=== PATIENT | male | born 1960 | race Caucasian/White ===

== ENCOUNTER → 2017-08-15 | Outpatient (CLI) | payer BC ==
[~2017-08-15] MED LIST: ATEN100T PO; ATEN50TA PO; ATOR80TA76 PO; CETI10TA17 PO; DABI150C5 PO; DILT240C90 PO; FLEC100T PO; FLUT16SP22 NS; GUAI120013 PO; LORA10TA7 PO; MULT-974 PO
== END ==
LOC: CARD 09:30
PROVIDERS: ATTEND Physician Assistant
DX: I10 Essential (primary) hypertension (principal); R00.2 Palpitations; G47.33 Obstructive sleep apnea (adult) (pediatric); I48.0 Paroxysmal atrial fibrillation
CPT/HCPCS: 93306

== ENCOUNTER → 2018-02-17 | Outpatient (CLI) | payer BC ==
[~2018-02-17] VITALS: Ht 190.5 cm; Wt 103.0 kg
[~2018-02-17] MED LIST changes: +CATHETER FLUSH 10 ML SYR IV PRN
[2018-02-17 10:00] VITALS: BP 172/74
--- NOTE | 2018-02-17 12:30 | STRESS TEST ---
DATE OF SERVICE: 02/17/2018 EXERCISE MYOVIEW STRESS TEST REPORT REFERRING PHYSICIAN: Dr. Gannon. Baseline heart rate is 61, baseline blood pressure 138/91, baseline EKG is sinus rhythm with no ischemic changes. In summary, the patient was injected with 10.7 mCi of technetium-99 Myoview and the resting images were obtained. Then, the patient started exercising with a baseline heart rate, blood pressure and EKG mentioned above. The patient was able to exercise for 10 minutes 45 seconds on standard Shawn protocol. With peak exercise level, EKG was showing minimal nondiagnostic changes. During recovery, heart rate and blood pressure returned to baseline. EKG returned to baseline, peak blood pressure was 188/83. The resting and stress images were reviewed and compared in the short axis, horizontal long axis, and vertical long axis views. Review of the images showed extracardiac attenuation affecting the quality of the images. There is mild decreased uptake at the base of the anterior wall and base of the inferior wall with no significant reversibility. SSS is 3, SDS 3, TID value 1.06. On the gated images, the left ventricle appeared to be in normal size with normal contractility. Calculated ejection fraction 54%. CONCLUSION: 1. Good exercise tolerance, a total of 10 minutes 45 seconds on standard Shawn protocol, total of 12.1 METS achieving 96% of maximum expected heart rate. 2. Mild hypertensive response to exercise, returned to baseline during recovery. 3. Minimal nondiagnostic EKG changes with exercise, returned to baseline during recovery. 4. No significant ischemia or infarction on SPECT images. 5. Normal left ventricular size with normal contractility. Calculated ejection fraction of 54%. Job ID: [id number] DocumentID: [id number] Dictated Date: 02/17/2018 12:20:56 [facility] Date: 02/17/2018 12:29:57 Dictated By: RADHA MORTENSEN MD
== END ==
LOC: CARD 07:29
PROVIDERS: ATTEND Physician Assistant
DX: I10 Essential (primary) hypertension (principal); R00.2 Palpitations; I48.0 Paroxysmal atrial fibrillation; G47.33 Obstructive sleep apnea (adult) (pediatric); E11.9 Type 2 diabetes mellitus without complications
CPT/HCPCS: 78452; 93017

== ENCOUNTER → 2020-04-05 | Outpatient (CLI) | payer BC ==
[~2020-04-05] MED LIST changes: -CATHETER FLUSH 10 ML SYR IV PRN
== END ==
LOC: CARD 14:00
PROVIDERS: ATTEND Internal Medicine Cardiovascular Disease
DX: I48.19 Other persistent atrial fibrillation (principal); I34.0 Nonrheumatic mitral (valve) insufficiency; I51.7 Cardiomegaly; G47.33 Obstructive sleep apnea (adult) (pediatric)
CPT/HCPCS: 93306

== ENCOUNTER → 2020-04-11 | Outpatient (CLI) | payer BC ==
[~2020-04-11] VITALS: Ht 190 cm; Wt 117.0 kg
[~2020-04-11] MED LIST changes: +REGADENOSON 0.4 MG/5 ML SYR (LEXISCAN) IV ONE
[2020-04-11] MEDS: CATHETER FLUSH 10 ML SYR IV PRN ×2 (07:37→09:15)
[2020-04-11 09:15] VITALS: BP 134/74
--- NOTE | 2020-04-11 11:11 | Cardiology Stress Test Report ---
Stress Test Report Date of Procedure/Referring: Date of Procedure: Apr 11, 2020 PCP Radha Luong MD Admitting Physician Oswaldo Gannon DO Indications: Paroxysmal atrial fibrillation Baseline Heart Rate: 55 Baseline Blood Pressure: Blood Pressure Systolic: 134 Blood Pressure Diastolic: 74 Baseline Vitals Vital Signs Date Time Temp Pulse Resp B/P (MAP) Pulse Ox O2 Delivery O2 Flow Rate FiO2 04/11/20 09:15 55 134/74 (94) 95 Room Air Baseline EKG: Baseline EKG: normal sinus rhythm Summary After explaining the procedure to the patient, he signed a consent and then brought to the stress nuclear laboratory. Patient received 0.4 mg Lexiscan for stress test, ECG, heart rate and blood pressure were monitored continuously. Resting and stress dose of radio tracer were injected, imaging was acquired and reviewed in short axis, horizontal long axis and vertical long axis views. TID: 1.04 SSS: 2 SDS: 0 EF: 51 1. Patient tolerated Lexiscan well 2. Patient maintained sinus rhythm during test 3. Diaphragmatic attenuation with typical male pattern, fixed defect at the basal to mid inferior wall with no significant ischemia or infarction 4. Normal left ventricular size, EF 51 percent RADHA LUONG MD Apr 11, 2020 11:11
== END ==
LOC: CARD 08:00
PROVIDERS: ATTEND Internal Medicine Cardiovascular Disease
DX: I48.0 Paroxysmal atrial fibrillation (principal); G47.33 Obstructive sleep apnea (adult) (pediatric)
CPT/HCPCS: 78452; 93017

== ENCOUNTER → 2021-08-09 | Outpatient (CLI) | payer BC ==
[~2021-08-09] MED LIST changes: +CATHETER FLUSH 10 ML SYR IVP PRN; -REGADENOSON 0.4 MG/5 ML SYR (LEXISCAN) IV ONE
[2021-08-09 08:50] VITALS: BP 137/58
--- NOTE | 2021-08-14 08:39 | Cardiology Stress Test Report ---
Stress Test Report Date of Procedure/Referring: Date of Procedure: Aug 09, 2021 Isabel Connell Admitting Physician Oswaldo Gannon DO Indications: HTN Baseline Heart Rate: 58 Baseline Blood Pressure: Blood Pressure Systolic: 137 Blood Pressure Diastolic: 58 Vital Signs Date Time Temp Pulse Resp B/P (MAP) Pulse Ox O2 Delivery O2 Flow Rate FiO2 08/09/21 08:50 58 16 137/58 (84) 98 Room Air Baseline Vital Signs Vital Signs Date Time Temp Pulse Resp B/P (MAP) Pulse Ox O2 Delivery O2 Flow Rate FiO2 08/09/21 08:50 58 16 137/58 (84) 98 Room Air Baseline EKG: Baseline EKG: NSR, APC Summary: After explaining the procedure and details to the patient, he signed the consent and was brought to the stress nuclear laboratory. Patient exercised on standard Shawn protocol, EKG, heart rate and blood pressure were monitored continuously, resting and stress doses of radio tracer were injected, imaging was acquired and reviewed in the short axis, horizontal long axis and vertical long axis views Patient was able to exercise for a total of 10 minutes on Shawn protocol, METs 11.7 Maximum heart rate 149 Maximum blood pressure 183/85 Stress EKG, Minimal nondiagnostic changes Recovery EKG, Return to baseline TID: 1.05 SSS: 7 SDS: 4 EF: 62 Conclusion: 1. Excellent exercise tolerance for a total of 10 minutes on standard Shawn protocol, 11.7 METS achieving 94% of maximum expected heart rate. 2. Baseline sinus bradycardia with atrial premature contractions, frequent PVCs at peak exercise level with ventricular bigeminy resolved in recovery. 3. Hypertensive response to exercise to return to baseline during recovery with peak blood pressure 183/85 4. Diaphragmatic attenuation with mild reversible ischemia involving the mid to apical inferior wall and inferoseptum 5. Normal left ventricular size, ejection fraction 62% RADHA MORTENSEN MD Aug 14, 2021 08:39
== END ==
LOC: CARD 07:30
PROVIDERS: ATTEND Physician Assistant
DX: I48.0 Paroxysmal atrial fibrillation (principal); I10 Essential (primary) hypertension
CPT/HCPCS: 78452; 93017

== ENCOUNTER 2021-08-23 06:42 | Day surgery (SDC) | payer BC ==
[~2021-08-23] VITALS: Ht 114.3 cm; Wt 190.5 kg
[2021-08-23] VITALS (9 sets, daily range): BP systolic 115–147; BP diastolic 81–97
[~2021-08-23 06:42] MED LIST changes: -CATHETER FLUSH 10 ML SYR IVP PRN
[2021-08-23] MEDS ORDERED: NS IV 1000 ML 1,000 ML IV SCH ×2 (07:00→09:00)
[2021-08-23] MEDS ORDERED: HEParin (CATH LAB) 2,000 ML IV ONE (07:01)
[2021-08-23] MEDS ORDERED: LIDOCAINE 1% INJ 50 ML (XYLOCAINE) VIAL ONE (07:01)
[2021-08-23] MEDS ORDERED: NS IV 1000 ML 1,000 ML ONE (07:01)
[2021-08-23 07:27] LABS: CLARITY,URINE CLEAR; COLOR,URINE YELLOW; GLUCOSE, URINE (UA) NEGATIVE (NEGATIVE); KETONES,URINE TRACE (NEGATIVE); LEUKOCYTE ESTERASE ,URINE NEGATIVE (NEGATIVE); NITRITE,URINE NEGATIVE (NEGATIVE); PH,URINE 5.5 (5-9); PROTEIN,URINE NEGATIVE (NEGATIVE)
[2021-08-23] MEDS ORDERED: CETI10TA49 PO (07:31)
[2021-08-23] MEDS ORDERED: LOSA100T57 PO (07:31)
[2021-08-23] MEDS ORDERED: ATOR20TA66 PO (07:31)
[2021-08-23] MEDS ORDERED: fentaNYL INJ 100 MCG/2 ML AMP ONE (07:31)
[2021-08-23] MEDS ORDERED: APIX5TAB PO (07:31)
[2021-08-23] MEDS ORDERED: VERAPAMIL 5 MG/2 ML (CALAN) VIAL IV ONE (07:31)
[2021-08-23] MEDS ORDERED: FLEC150T2 PO (07:31)
[2021-08-23 07:32] LABS: HEMATOCRIT 45 % (40-54); HEMOGLOBIN 15.3 g/dL (13.3-17.7); MEAN CORPUSCULAR HEMOGLOBIN 31 pg (25-34); MEAN CORPUSCULAR HGB CONC 34 g/dL (32-36); MEAN CORPUSCULAR VOLUME 91 fL (80-99); MEAN PLATELET VOLUME 11.1 fL (9.0-12.2); PLATELET COUNT 210 10^3/uL (130-400)
[2021-08-23] MEDS ORDERED: NITRO DRIP 25000 MCG/D5W 250 ML IV ONE (07:32)
[2021-08-23] MEDS ORDERED: MIDAZOLAM 5 MG/5 ML (VERSED) VIAL ONE (07:32)
[2021-08-23] MEDS ORDERED: HEParin 1000 UNIT/ML (10ML VIAL) FOR BOLUS ONE (07:32)
[2021-08-23 07:42] LABS: PROTHROMBIN TIME PATIENT 13.2 SEC (12.2-14.7)
--- NOTE | 2021-08-23 07:46 | Diagnostic Imaging Report ---
EXAMINATION: Chest radiograph, portable AP view. DATE: 08/23/2021 7:37 AM INDICATION: 61-year-old male, preoperative exam. COMPARISON: July 13, 2015. FINDINGS: Heart size and mediastinal contours are unchanged. There is no identified pneumothorax. There is no large pleural effusion. There is no identified focal airspace consolidation. IMPRESSION: No identified acute cardiopulmonary abnormality. Dictated by: Dictated on workstation # [id number]
[2021-08-23 07:49] LABS: ALBUMIN 4.4 GM/DL (3.2-4.5); BILIRUBIN,TOTAL 0.8 MG/DL (0.1-1.0); CALCIUM 9.5 MG/DL (8.5-10.1); CREATININE SERUM 1.22 MG/DL (0.60-1.30); POTASSIUM 3.8 MMOL/L (3.6-5.0); TOTAL PROTEIN 7.7 GM/DL (6.4-8.2)
[2021-08-23 07:52] LABS: BACTERIA,URINE TRACE /HPF; BILIRUBIN,URINE 1+ (NEGATIVE); SQUAMOUS EPITHELIAL CELL,UR 0-2 /HPF
--- NOTE | 2021-08-23 08:12 | Conscious Sedation/ASA ---
Conscious Sedation Pre-Proced Time 08:11 ASA Score 3 For ASA 3 and 4: Consider anesthesia and medical clearance. Also, for patients with a history of failed moderate sedation consider anesthesia. Airway Lungs Heart ASA score ASA 1: a normal healthy patient ASA 2: a patient with a mild systemic disease (mid diabetes, controlled hypertension, obesity x ASA 3: a patient with a severe systemic disease that limits activity (angina, COPD, prior Myocardial infarction) ASA 4: a patient with an incapacitating disease that is a constant threat to life (CHF, renal failure) ASA 5: a moribund patient not expected to survive 24 hrs. (ruptured aneurysm) ASA 6: a declared brain- patient whose organs are being harvested. For emergent operations, add the letter E after the classification Mallampati Classification Grade 3 Sedation Plan Analgesia, Amnesia, Plan communicated to team members, Discussed options with patient/fam, Discussed risks with patient/fam The patient is an appropriate candidate to undergo the planned procedure, sedation, and anesthesia. The patient immediately re-assessed prior to indication. RADHA MORTENSEN MD Aug 23, 2021 08:12
--- NOTE | 2021-08-23 08:49 | Discharge Inst-Post CATH ---
Discharge Inst-CATH/EP Problems Reviewed?: Yes Post Cardiac Cath/EP D/C Inst Follow Up/Plan Appointment with Dr. Luong's office in 2 to 4 weeks <b>CARDIAC CATH/EP PROCEDURE DISCHARGE INSTRUCTIONS</b> ACTIVITY * Go Home directly and rest. * Limit activity of the leg (or wrist if it was used) for 7 days including aer obics, swimming, jogging, bicycling, etc. * Restrict stair-climbing for 7 days if possible, if not, climb up with your non-cath leg, then bring together on the same step. * Avoid lifting, pushing, pulling or excessive movement of the affected extremi ty for 7 days. * Customary sexual activity may be resumed after 2 days-use caution not to use a position that strains or causes pain to the affected extremity. * No driving for 24 hours. * NO SMOKING. * Avoid straining for bowel movements for 7 days. * Gentle walking on level ground is allowed. * Returning to work will depend on the type of procedure and the results. Your doctor will discuss this with you. CALL YOUR DOCTOR FOR ANY OF THE FOLLOWING: *If bleeding from the puncture site occurs- Apply gentle pressure to site with clean cloth and call your doctor or EMS. * If a knot or lump forms under the skin, increases in size, or causes pain. * If bruising appears to be worsening or moving further down your leg instead of disappearing. * Temperature above 101 F. CARE OF YOUR GROIN INCISION; * Bruising or purple discoloration of the skin near the puncture site is common. * You may shower only, no bathtub bathing for 5 days. Be careful to avoid slipping as your leg may feel stiff. * If a closure device was used on your femoral artery, please see the attached guide regarding care of the device and your leg. * Leave dressing on FOR 24 hours. CARE OF YOUR WRIST INCISION; * Bruising or purple discoloration of the skin near the puncture site is common. * You may shower. * DO NOT submerge wrist. * Leave dressing on FOR 24 hours. RADHA LUONG MD Aug 23, 2021 08:49
--- NOTE | 2021-08-23 08:52 | Cardiac Cath Report ---
Cardiac Cath Report Physician (s)/Valve Inspector (s) Physician RADHA MORTENSEN MD Pre-Procedure Diagnosis Pre-Procedure Diagnosis: Coronary artery disease Post-Procedure Note Procedure Start Date: Aug 23, 2021 Name of Procedure: Left heart catheterization Aortic arch angiogram Findings/Procedure Note PROCEDURE NOTE: 61 years old gentleman with paroxysmal atrial fibrillation, maintained on flecainide, had borderline stress test, scheduled for cardiac catheterization possible PTCA. After explaining the procedure to the patient, all pros and cons were explained, all questions were answered. The patient signed the consent and then he was placed on the cardiac catheterization laboratory. Groin was prepped SL fashion local anesthesia was used. Sheath placed in the right radial artery, I had difficulty advancing the catheter through the aortic arch. [place] catheter was advanced to the left ventricular cavity, pressure was measured, pullback LV to aorta was done, engaged the right and left coronary system, angiogram was done. Pulled back to the aortic arch and aortic arch was done. At the end of the procedure the sheath was removed. Vascular band was used FINDINGS: Hemodynamics LV 110/10, end-diastolic pressure of 10 Aorta 108/68 mean of 88 ANATOMY: Left Main is free of obstructive disease Left Anterior Descending is slightly tortuous artery with slow flow due to small vessel disease nonobstructive disease Left Circumflex has slow flow due to small vessel disease nonobstructive disease Right Coronary Artery is dominant artery with slow flow due to small vessel disease nonobstructive disease LV Gram was not done, pressure was measured Aorta evaluation done with aortic arch angiogram showing normal aortic arch, no dissection or aneurysm, slightly tortuous origin of the brachiocephalic artery, normal left carotid and left subclavian arteries. CONCLUSION: 1. Slow flow in the coronary system due to small vessel disease nonobstructive disease 2. Normal left ventricular end-diastolic pressures 3. Normal aortic arch and great vessels of the neck DISCUSSION AND RECOMMENDATION: Continue with medical therapy, continue with class Ic antiarrhythmic medication and restart Eliquis Anesthesia Type: Conscious Sedation Estimated blood loss (mL): 5 ml Contrast Amount: 55 ml Total Radiation Dose: 446 mGy Post-Procedure Diagnosis Post-operative diagnosis: Coronary artery disease Paroxysmal atrial fibrillation Hypertension Hyperlipidemia RADHA MORTENSEN MD Aug 23, 2021 08:52
== END 2021-08-23 11:30 | disposition home or self-care (01) ==
LOC: CATH 06:42 → SDC 09:16 → CATH 11:30
PROVIDERS: ATTEND Internal Medicine Cardiovascular Disease
DX: I25.10 Atherosclerotic heart disease of native coronary artery without angina pectoris (principal); I48.0 Paroxysmal atrial fibrillation; I10 Essential (primary) hypertension; E78.5 Hyperlipidemia, unspecified; I65.23 Occlusion and stenosis of bilateral carotid arteries; Z87.891 Personal history of nicotine dependence; Z79.899 Other long term (current) drug therapy; Z79.01 Long term (current) use of anticoagulants
CPT/HCPCS: 36221; 36415; 71045; 80053; 80061; 81000; 85027; 85610; 85730; 87081; 93005; 93458

== ENCOUNTER → 2023-04-03 | Outpatient (CLI) | payer BC ==
[~2023-04-03] VITALS: Ht 190 cm; Wt 118.0 kg
[~2023-04-03] MED LIST changes: +APIX5TAB PO; +ATOR20TA66 PO; +CATHETER FLUSH 10 ML SYR IVP PRN; +CETI10TA49 PO; +FLEC150T2 PO; +LOSA100T58 PO
[2023-04-03 08:53] VITALS: BP 141/90
--- NOTE | 2023-04-03 11:14 | Cardiology Stress Test Report ---
Stress Test Report Date of Procedure/Referring: Date of Procedure: Apr 03, 2023 PCP Oswaldo Manzo DO Admitting Physician Admitting Physician: Attending Physician: Ronnell Luong MD Baseline Heart Rate: 62 Baseline Blood Pressure: Blood Pressure Systolic: 141 Blood Pressure Diastolic: 90 Vital Signs Date Time Temp Pulse Resp B/P (MAP) Pulse Ox O2 Delivery O2 Flow Rate FiO2 04/03/23 08:53 69 141/90 (107) 97 Room Air Baseline Vital Signs Vital Signs Date Time Temp Pulse Resp B/P (MAP) Pulse Ox O2 Delivery O2 Flow Rate FiO2 04/03/23 08:53 69 141/90 (107) 97 Room Air Baseline EKG: Baseline EKG: NSR Summary: After explaining the procedure and details to the patient, he signed the consent and was brought to the stress nuclear laboratory. Patient exercised on standard Shawn protocol, EKG, heart rate and blood pressure were monitored continuously, resting and stress doses of radio tracer were injected, imaging was acquired and reviewed in the short axis, horizontal long axis and vertical long axis views Patient was able to exercise for a total of 6.30 minutes on Shawn protocol, METs 7.1 Maximum heart rate 149 Maximum blood pressure 199/75 Stress EKG, Minimal nondiagnostic changes Recovery EKG, Return to baseline TID: 0.84 SSS: 1 SDS: 1 EF: 59 Conclusion: Good exercise tolerance for 6 minutes and 30 seconds on standard Shawn protocol, 7.1 METS achieving 95% of maximal expected heart rate Appropriate heart rate response to exercise with hypertensive response to exe rcise with peak blood pressure 199/75 return to baseline during recovery Minimal nondiagnostic EKG changes with exercise return to baseline during recovery Diaphragmatic attenuation with typical male pattern with no significant ischemia or infarction on SPECT images Normal left ventricular size, ejection fraction 59% Copy Copies To 1: OSWALDO MANZO BASHAR J MD Apr 03, 2023 11:14
== END ==
LOC: CARD 07:28
PROVIDERS: ATTEND Internal Medicine Cardiovascular Disease
DX: J98.6 Disorders of diaphragm (principal); I10 Essential (primary) hypertension
CPT/HCPCS: 78452; 93017